=== PATIENT | male | born 1985 | race African-American/Black ===

== ENCOUNTER 2017-09-15 18:53 | Emergency (ER) | payer SELFPAY ==
[~2017-09-15] VITALS: Ht 180.3 cm; Wt 66.0 kg
[2017-09-15 18:56] VITALS: BP 88/49
== END 2017-09-15 19:30 | disposition left against medical advice (07) ==
LOC: ER 19:10
DX: R55 Syncope and collapse (principal); M25.522 Pain in left elbow; R51 Headache; F17.200 Nicotine dependence, unspecified, uncomplicated; X58.XXXA Exposure to other specified factors, initial encounter; Y93.89 Activity, other specified; Y92.89 Other specified places as the place of occurrence of the external cause; Y99.8 Other external cause status
CPT/HCPCS: 93005; 99283; Z7610